=== PATIENT | male | born 1960 | race Caucasian/White ===

== ENCOUNTER 2016-09-22 09:21 | Day surgery (SDC) | payer MEDICAID ==
[2016-09-22] MEDS ORDERED: LIDOCAINE 1% 2 ML INJ ID PRN (09:30)
[2016-09-22] MEDS ORDERED: LR 1,000 ML IV ONE (09:30)
--- NOTE | 2016-09-22 09:41 | PDANEPAE ---
ANE History of Present Illness here for colonoscopy ANE Past Medical History - Cardiovascular History Hx Hypertension: No Hx Arrhythmias: No Hx Chest Pain: No Hx Coronary Artery / Peripheral Vascular Disease: No Hx CHF / Valvular Disease: No Hx Palpitations: No - Pulmonary History Hx COPD: No Hx Asthma/Reactive Airway Disease: No Hx Recent Upper Respiratory Infection: No Hx Oxygen in Use at Home: No Hx Sleep Apnea: No Sleep Apnea Screening Result - Last Documented: Negative - Neurologic History Hx Cerebrovascular Accident: No Hx Seizures: No Hx Dementia: No - Endocrine History Hx Diabetes: No - Renal History Hx Renal Disorders: No - Liver History Hx Hepatic Disorders: No - Neurological & Psychiatric Hx Hx Neurological and Psychiatric Disorders: No - Cancer History Hx Cancer: No - Congenital Disorder History Hx Congenital Disorders: No - GI History Hx Gastrointestinal Disorders: No - Other Health History Other Health History: FLU TYPE SX FOR 7 WEEKS. DIZZINESS,HEAD PRESSURE. WITHOUT FEVER - Chronic Pain History Chronic Pain: No - Surgical History Prior Surgeries: wisdom teeth ANE Review of Systems Review of systems is: negative - Exercise capacity Exercise capacity: >=4 METS METS (RN): 4 METS ANE Patient History - Allergies Allergies/Adverse Reactions: No Known Allergies Allergy (Unverified 09/04/16 13:29) - Home Medications Home medications: home medication list seen and reviewed Home Medications: Vitamin D3 09/04/16 [Last Taken 09/15/16] - NPO status NPO Status: no food or drink >8 hours - Anes Hx Anes Hx: no prior problems - Smoking Hx Smoking Status: Current some day smoker - Family Anes Hx Family Hx Anesthesia Complications: none ANE Labs/Vital Signs - Vital Signs Height: 182.88 cm Weight: 75.296 kg ANE Physical Exam - Airway Neck exam: FROM Mallampati Score: Class 1 - Pulmonary Pulmonary: no respiratory distress - Cardiovascular Cardiovascular: regular rate and rhythym - ASA Status ASA Status: I ANE Anesthesia Plan Anesthesia Plan: GA with mask
[2016-09-22 09:46] VITALS: BP 132/89; PULSE 99; RESP 18; TEMP 97.7; O2SAT 97
[2016-09-22] MEDS ORDERED: NALOXONE HCL 0.4 MG/ML INJ IVP PRN (09:59)
[2016-09-22] MEDS ORDERED: ONDANSETRON 4 MG/2 ML VIAL IVP PRN (09:59)
[2016-09-22] MEDS ORDERED: fentaNYL 100 MCG/2 ML INJ IVP PRN (09:59)
[2016-09-22] MEDS ORDERED: HYDROmorphONE/DILAUDID 1 MG/ML SYR IVP PRN (09:59)
[2016-09-22] MEDS ORDERED: PROPOFOL/EMULSION 500 MG/50 ML BOTTLE IV ONE (10:00)
--- NOTE | 2016-09-22 10:02 | PDGENHP ---
History & Physical Chief Complaint: Screening colonoscopy Relevant Physical Exam: GEN: NAD. Cardiac: RRR. Lungs: CTA B. Abd: Soft, nt, nd
--- NOTE | 2016-09-22 10:20 | CPEKG ---
Heart Rate: 109 RR Interval: 550 QRSD Interval: 80 QT Interval: 324 QTC Interval: 437 QRS [place]: 23 T Wave [place]: 237 EKG Severity - ABNORMAL ECG - EKG Impression: ATRIAL FLUTTER WITH VARIABLE BLOCK EKG Impression: CONSIDER ANTEROSEPTAL INFARCT EKG Impression: NONSPECIFIC T ABNORMALITIES, LATERAL LEADS Electronically Signed By: Juancarlos Watkins 22-Sep-2016 13:27:24
== END 2016-09-22 12:43 | disposition home or self-care (01) ==
LOC: FSGY 09:21
PROVIDERS: ATTEND Internal Medicine Gastroenterology
DX: Z12.11 Encounter for screening for malignant neoplasm of colon (principal); Z53.09 Procedure and treatment not carried out because of other contraindication
CPT/HCPCS: J2704

== ENCOUNTER → 2017-05-04 | Outpatient (CLI) | payer MEDICAID ==
[~2017-05-04] MED LIST: IOPAMIDOL (ISOVUE 370) 100 ML BTL IV ONE
== END ==
LOC: FIMAGING 09:39
PROVIDERS: ATTEND Internal Medicine Cardiovascular Disease
DX: Z01.818 Encounter for other preprocedural examination (principal); I48.91 Unspecified atrial fibrillation; I48.92 Unspecified atrial flutter
CPT/HCPCS: Q9967

== ENCOUNTER 2017-05-11 10:44 | Observation (INO) | payer MEDICAID ==
[2017-05-11] MEDS ORDERED: NS 1,000 ML IV ONE (10:53)
[2017-05-11 11:44] LABS: PLATELET COUNT 261 10^3/uL (150-400)
--- NOTE | 2017-05-11 12:05 | CPEKG ---
Heart Rate: 75 RR Interval: 800 QRSD Interval: 80 QT Interval: 404 QTC Interval: 452 QRS [place]: 51 T Wave [place]: 67 EKG Severity - ABNORMAL ECG - EKG Impression: ATRIAL FIBRILLATION, V-RATE 60-88 Electronically Signed By: Jean-Paul Moore 11-May-2017 12:41:33
[2017-05-11 12:14] LABS: INR 1.06 (0.83-1.16)
--- NOTE | 2017-05-11 12:27 | PDANEPAE ---
ANE History of Present Illness A fib/ a flutter ANE Past Medical History - Cardiovascular History Hx Hypertension: No Hx Arrhythmias: Yes Hx Chest Pain: No Hx Coronary Artery / Peripheral Vascular Disease: No Hx CHF / Valvular Disease: No Hx Palpitations: No - Pulmonary History Hx COPD: No Hx Asthma/Reactive Airway Disease: No Hx Recent Upper Respiratory Infection: No Hx Oxygen in Use at Home: No Hx Sleep Apnea: No - Neurologic History Hx Cerebrovascular Accident: No Hx Seizures: No Hx Dementia: No - Endocrine History Hx Diabetes: No Hypothyroid: No Hyperthyroid: No Obesity: no - Renal History Hx Renal Disorders: No - Liver History Hx Hepatic Disorders: No - Neurological & Psychiatric Hx Hx Neurological and Psychiatric Disorders: No - Cancer History Hx Cancer: No - Congenital Disorder History Hx Congenital Disorders: No - GI History Hx Gastrointestinal Disorders: No - Other Health History Other Health History: FLU TYPE SX FOR 7 WEEKS. DIZZINESS,HEAD PRESSURE. WITHOUT FEVER - Chronic Pain History Chronic Pain: No - Surgical History Prior Surgeries: wisdom teeth ANE Review of Systems Review of systems is: negative Review of Systems: - Exercise capacity Exercise capacity: >=4 METS ANE Patient History - Allergies Allergies/Adverse Reactions: No Known Allergies Allergy (Unverified 09/04/16 13:29) - Home Medications Home medications: home medication list seen and reviewed Home Medications: Dabigatran Etexilate Mesyl [Pradaxa 150 MG (*)] 150 mg PO BID 05/04/17 [Last Taken 05/09/17 00:00] Diltiazem HCl [Cartia Xt] 120 mg PO HS 05/04/17 [Last Taken 05/10/17 15:00] Flecainide Acetate [Tambocor] 100 mg PO BID 05/04/17 [Last Taken 05/05/17 20:00] Omeprazole 20 mg pe PO DAILY 05/11/17 [Last Taken 05/10/17 08:00] - Anes Hx Anes Hx: no prior problems - Smoking Hx Smoking Status: Former smoker - Family Anes Hx Family Hx Anesthesia Complications: none ANE Labs/Vital Signs - Labs Result Diagrams: 05/11/17 11:30 05/11/17 11:30 - Vital Signs Height: 183 cm Weight: 77.1 kg ANE Physical Exam - Airway Neck exam: FROM Mallampati Score: Class 1 Mouth exam: normal dental/mouth exam - Pulmonary Pulmonary: no respiratory distress - Cardiovascular Cardiovascular: regular rate and rhythym - ASA Status ASA Status: II ANE Anesthesia Plan Anesthesia Plan: general endotracheal anesthesia
[2017-05-11] MEDS ORDERED: PROPOFOL 200 MG/20 ML VIAL ONE (12:29)
[2017-05-11] MEDS ORDERED: fentaNYL 100 MCG/2 ML INJ ONE (12:29)
[2017-05-11] MEDS ORDERED: DEXAMETHASONE 4 MG/ML VIAL ONE (12:30)
[2017-05-11] MEDS ORDERED: ROCURONIUM 50 MG/5 ML VIAL ONE (12:31)
--- NOTE | 2017-05-11 12:40 | PDGENHP ---
History & Physical Chief Complaint: symptomatic AFIB and AFL Relevant Physical Exam: s1s2 rrr cta ao3 Cardiorespiratory Assessment: Symptomatic AFIB and AFL. Failed medical Rx with flecainide. CB ablation for AFIB, RF ablation for AFL
[2017-05-11] MEDS ORDERED: BUPIVACAINE 0.5% 30 ML SDV ONE (13:04)
[2017-05-11] MEDS ORDERED: HEPARIN/DEXTROSE 25,000 UNIT/500 ML BAG ONE (13:04)
[2017-05-11] MEDS ORDERED: HEPARIN 10,000 UNIT/10 ML MDV (1,000 UNIT/ML) ONE (13:04)
[2017-05-11] MEDS ORDERED: LIDOCAINE 1% 300 MG/30 ML SDV ONE (13:04)
[2017-05-11] MEDS ORDERED: IOPAMIDOL (ISOVUE-300) 100 ML BTL ONE (13:05)
--- NOTE | 2017-05-11 14:25 | POSTANESTH ---
Post Anesthetic Evaluation Cardiovascular Status: Normal, Stable Respiratory Status: Normal, Stable Level of Consciousness/Mental Status: Can Participate in Eval Pain Control: Adequate, Prn Tx Ordered Nausea/Vomiting Control: Adequate, Prn Tx Ordered Complications Possibly Related to Anesthesia: None Noted
[2017-05-11] MEDS ORDERED: PROTAMINE SULFATE 50 MG/5 ML VIAL IVP ONE (15:51)
[2017-05-11] MEDS ORDERED: ALBUTEROL 3 ML DEYVIAL IH PRN (16:00)
[2017-05-11] MEDS ORDERED: NALOXONE HCL 0.4 MG/ML INJ IVP PRN (16:00)
[2017-05-11] MEDS ORDERED: fentaNYL 100 MCG/2 ML INJ IVP PRN (16:00)
[2017-05-11] MEDS ORDERED: HYDROmorphONE/DILAUDID 2 MG/ML INJ IVP PRN (16:00)
[2017-05-11] MEDS ORDERED: ACETAMINOPHEN 500 MG TAB PO PRN (16:00)
[2017-05-11] MEDS ORDERED: NS 500 ML IV PRN (16:00)
[2017-05-11] MEDS ORDERED: HYDROCODONE/APAP 5/325 TAB PO PRN (16:00)
[2017-05-11] MEDS ORDERED: PROMETHAZINE HCL 25 MG/ML INJ IVP PRN (16:00)
[2017-05-11] MEDS ORDERED: ONDANSETRON 4 MG/2 ML VIAL IVP PRN (16:00)
[2017-05-11] MEDS ORDERED: OXYCODONE/APAP 5/325 TAB PO PRN (16:00)
[2017-05-11] MEDS ORDERED: LABETALOL HCL 5 MG/ML 20 ML MDV IVP PRN (16:00)
--- NOTE | 2017-05-11 16:13 | EPPROC ---
Electrophysiology Procedure Note: ELECTROPHYSIOLOGIC STUDY AND BALLOON-CATHETER MEDIATED CRYOABLATION FOR PAROXYSMAL ATRIAL FIBRILLATION AND RF ABLATION FOR ATRIAL FLUTTER Procedures performed: 70839-87 EP evaluation with RA/RV/LA pace/record, with arrhythmia induction 85801-78 EP evaluation with RA/RV pace record, insert/reposition catheter, with arrhythmia induction 54362 Atrial fibrillation ablation 2nd arrhythmia all Intracardiac echocardiogram Transseptal puncture Fluoroscopy INDICATION: Paroxysmal atrial fibrillation and atrial flutter PROCEDURE: The patient arrived in the Electrophysiology Laboratory in the fasting state. The right groin, left groin and right infraclavicular area were prepped and draped in the usual sterile fashion. Anesthesiologist administered general anesthesia Dr. Scott Hernandez. All catheters were placed percutaneously using the Seldinger technique and advanced into position under fluoroscopic guidance. One #7 [place] deflectable octapolar electrode catheter was placed in the His-bundle position via the left femoral vein (2mm spacing, IVC electrode for unipolar recordings). This catheter was placed in the coronary sinus after transseptal puncture and later placed in the SVC-R subclavian vein junction to pace the right phrenic nerve during right pulmonary vein ablation. One #8 [place] AcuNaV ultrasound catheter was placed in the left femoral vein and advanced into the right atrium. One #4 [place] sheath was inserted into the left femoral artery via percutaneous technique and used for continuous arterial blood pressure monitoring and intermittent ACT determination. Programmed stimulation was performed from the right atrium, left atrium (CS) and right ventricle. There was no evidence of AV accessory pathway. Intracardiac echo evaluation of the left atrium and pulmonary veins was performed. Baseline ACT was drawn and heparin bolus was administered and heparin drip was started prior to transseptal puncture. ACT was checked every 15 minutes and maintained in the range of 350-400 seconds. One 14Fr short sheath was placed in the right femoral vein. One 8Fr SL1 sheath was advanced into the right atrium via the 14Fr short sheath. Transseptal puncture was performed under intracardiac ultrasound, fluoroscopic and hemodynamic guidance placing the sheath into the left atrium. Central RF needle ( C0 curve) was used. The mean left atrial pressure was 6 mmHg. Pulmonary vein angiogram was done using SL1 sheath. CT angiography of pulmonary veins was done previously. There were distinct LSPV, LIPV, RSPV and RIPV. The SL1 sheath was exchanged for a Medtronic Flexcath sheath using an Amplatz stiff guide wire. A 28 mm Cryoballoon catheter with a 20 mm Achieve catheter was placed via the sheath into the left atrium. Intracardiac ultrasound and PV angiograms were used to assist in placing the mapping catheter at the antrum of the pulmonary veins. All pulmonary veins were isolated successfully using cryoballoon ablation using freeze/thaw/freeze cycles at 2-3-minute intervals, with good [id number] of isolation. Coumadin ridge/Ligament of Eric region was ablated. Pre and post pulmonary vein recordings were measured on the spiral Achieve catheter to ensure complete pulmonary vein isolation. During the right-sided ablation, phrenic nerve pacing was performed to assess the phrenic nerve strength ( manually and with ICE visualization of liver movement during phrenic capture) and the phrenic nerve was intact throughout the right-sided ablation and at the end of the procedure. An esophageal temperature probe (12 electrode, Circa) was placed by the anesthesiologist at the beginning of the procedure. Esophageal temperature was monitored continuously and cryoablation was interrupted if esophageal temperature was <15 C. Cryoapplications 9 total cryoablation time 1247s. Sheath was withdrawn to the right atrium. Medtronic FlexCath sheath was changed to a short sheath and Biosense Singer Mobi sheath was advanced through this into the right atrium . Halo catheter was placed along the tricuspid annulus. Using 8 mm RF catheter, lesions were placed across the cava tricuspid isthmus in the usual location. Bidirectional conduction block was achieved. ICE imaging post ablation was consistent with pre ablation imaging with no changes noted, moreover there was no left atrial/left ventricular thrombus and no pericardial effusion. The catheters were withdrawn. Protamine was given. Venous vascular access sheaths were removed in the EP lab after placing subcutaneous pursestring suture. Arterial sheath was left in place. The patient was recovered from anesthesia. There were no complications. The patient was arousable and moving all four extremities at the end of the procedure. CONCLUSIONS: 1. Paroxysmal atrial fibrillation. 2. Successful pulmonary vein isolation procedure (left and right pulmonary vein antrum) using cryoballoon ablation. 3. Atrial flutter. Successful ablation of cavo- tricuspid isthmus achieving bidirectional conduction block. 4. No apparent complications. Patient Problems: Problems Problem Status Onset Atrial fibrillation and flutter Acute
--- NOTE | 2017-05-11 16:45 | CPEKG ---
Heart Rate: 81 RR Interval: 741 P-R Interval: 180 QRSD Interval: 82 QT Interval: 376 QTC Interval: 437 P [place]: 79 QRS [place]: 53 T Wave [place]: 36 EKG Severity - ABNORMAL ECG - EKG Impression: SINUS RHYTHM EKG Impression: BORDERLINE R WAVE PROGRESSION, ANTERIOR LEADS EKG Impression: ST ELEVATION - CONSIDER PERICARDITIS Electronically Signed By: Ed Linder 11-May-2017 17:39:37
[2017-05-12] MEDS: DABIGATRAN ETEXILATE MESYL 150 MG CAP PO SCH ×2 (00:11→07:28)
[2017-05-12 04:57] LABS: PLATELET COUNT 231 10^3/uL (150-400)
[2017-05-12 05:07] LABS: INR 1.27 (0.83-1.16); PROTIME(PATIENT) 16.1 SEC (12.0-15.0)
[2017-05-12 05:10] LABS: CREATINE KINASE 597 IU/L (0-224)
--- NOTE | 2017-05-12 06:24 | CPEKG ---
Heart Rate: 72 RR Interval: 833 P-R Interval: 192 QRSD Interval: 82 QT Interval: 380 QTC Interval: 416 P [place]: 67 QRS [place]: 24 T Wave [place]: 35 EKG Severity - NORMAL ECG - EKG Impression: SINUS RHYTHM Electronically Signed By: Jean-Paul Moore 12-May-2017 06:38:40
[2017-05-12 06:27] VITALS: TEMP 98
[2017-05-12] MEDS ORDERED: OMEPRAZOLE 20 MG PO SCH (09:00)
[2017-05-12] MEDS ORDERED: PANTOPRAZOLE SODIUM 40 MG TAB PO SCH (09:00)
[2017-05-12 09:48] VITALS: BP 108/58; PULSE 81; RESP 12; O2SAT 94
--- NOTE | 2017-05-12 10:17 | ECHO ---
[email or web address] [address] Main: [phone] Fax: [email or web address] Echocardiogram Name: MAYDA MONTEIRO MR#: [id number] Study Date: 05/12/2017 Study Time: 09:08 AM Date of : 1960 Age: 56 year(s) Height: 182.9 cm (72 in.) Weight: 76.66 kg (169 lb.) BSA: 1.98 m2 Gender: Male Examination: Echo Indication: F/U Post EP Study Image Quality: Contrast: Requested by: Jean-Paul Moore BP: 112 mmHg/66 mmHg Heart Rate: Rhythm: Indication: F/U Post EP Study Procedure Staff Kick Plate Installer: Olga Naylor RDCS Reading Physician: Jean-Paul Moore MD Requesting Provider: Conclusions: The ejection fraction is visually estimated to be 65 %. Mild mitral valve regurgitation is present. No pericardial effusion. Measurements: Chambers Valvular Assessment AV/MV Valvular Assessment TV/PV Normal Normal Normal Name Value Range Name Value Range Name Value Range Ao Franci (2D): 2.8 cm (1.4 cm-2.6 AV Vmax: 1.54 m/s (1 m/s-1.7 PV Vmax: 0.83 m/s (0.6 m/s-0.9 cm) m/s) m/s) IVSd (2D): 0.7 cm (0.6 cm-1.1 AV maxP mmHg ( - ) PV PGmax: 3 mmHg ( - ) cm) AV meanP mmHg ( - ) LVDd (2D): 4.6 cm (4.2 cm-5.9 LVOT Vmax: 1.20 m/s (0.7 m/s-1.1 cm) m/s) LVDs (2D): 3.0 cm (2.1 cm-4 JOSE (Vmax): 2.2 cm2 ( - ) cm) JOSE (VTI): 2.1 cm ( - ) LVPWd (2D): 0.9 cm (0.6 cm-1 MV E Vmax: 0.76 m/s ( - ) cm) MV A Vmax: 0.54 m/s ( - ) LVOTd 1.9 cm 1.9 cm mm MV E/A: 1.41 ( - ) LVEF (BP): 66 % (>=55 %) MV PHT: 0.077 s ( - ) Visual EF: 65 % MVA (PHT): 2.9 s ( - ) RVDd(2D): 2.4 cm (1.9 cm-3.8 cmmm) Continued Measurements: Chambers Valvular Assessment AV/MV Valvular Assessment TV/PV Name Value Name Value Name Value LADs: 3.4 cm MV DecTime: 261 m/s CVP (est.): 5 mmHg LADs Lon.0 cm MV E/E' Septal: 7.30 Patient: MAYDA MONTEIRO Study Date: 05/12/2017 Page 1 of 2 09:08 AM LA Area: 15.5 cm2 MV E/E' Lateral: 5.40 LA Volume: 48 ml LA Volume Index: 24.2 ml/m2 RA Area: 18.1 cm2 Additional Vessels Name Value Ao Ascendin.4 cm Findings: Left Ventricle: Normal size left ventricle. The ejection fraction is visually estimated to be 65 %. Right Ventricle: Normal size right ventricle. Normal RV function. Left Atrium: The left atrium is normal in size. Right Atrium: The right atrium is normal in size. Mitral Valve: The mitral valve is normal in appearance. Mild mitral valve regurgitation is present. No mitral stenosis is present. Aortic Valve: The aortic valve is normal in appearance. There is no aortic valve regurgitation. No aortic valve stenosis is present. Tricuspid Valve: The tricuspid valve appears normal. Trivial tricuspid valve regurgitation. Pulmonic Valve: The pulmonic valve is normal in appearance and function. IVC: The IVC is normal sized. Pericardium: No pericardial effusion. No pleural effusion. (No Signature Object) Patient: MAYDA MONTEIRO Study Date: 05/12/2017 Page 2 of 2 09:08 AM [id number]
--- NOTE | 2017-05-12 20:50 | GDS ---
[f rep st] DISCHARGE SUMMARY DISCHARGE DIAGNOSES: 1. Atrial flutter. 2. Atrial fibrillation. 3. Mild mitral regurgitation. PROCEDURES: 1. 05/11/2017, EP study with both successful pulmonary vein isolation of the left and right pulmonar y vein antrum using cryoballoon ablation and successful ablation of the cava tricuspid isthmus achiev ing bidirectional conduction block. 2. 05/12/2017, echocardiogram which shows ejection fraction of 65% with mild mitral valve regurgitat ion. BRIEF HISTORY: Please see dictated H and P by Dr. Moore for complete details. In brief, the patient i s a 56-year-old male, who recently has been having bouts of atrial fibrillation and flutter. The fir st diagnosis occurred in 2017 at a routine outpatient colonoscopy. He was referred to Dr. Moore and wa s found to be in both atrial flutter, as well as atrial fibrillation on a live cor device. Despite b eing on flecainide and diltiazem, he would have episodes of both arrhythmias. Options were reviewed and patient was set up for EP study with ablations performed on 05/11/2017. On day of discharge, pat ient denies any chest pain, dyspnea, pain in the groin, palpitations, PND, or orthopnea. PHYSICAL EXAM: VITAL SIGNS: On day of discharge, blood pressure 108/58, heart rate 81, respirations 12, O2 saturation 94% on room air. GENERAL: He is a very pleasant male in no apparent distress. H EENT: Head is normocephalic, atraumatic. Eyes PERRL. HEART: Regular rate and rhythm. LUNGS: Cl ear. ABDOMEN: Bilateral groin sites without bruit or any significant ecchymoses. LABORATORY DATA: CBC with WBC 11.27, hemoglobin 14.6, hematocrit 41.5, platelet count 231. BMP with sodium 140, potassium 4.5, chloride 108, CO2 21, BUN 16, creatinine 0.8, glucose 96. Troponin 12.6, consistent with extensive ablation. Serial EKGs personally reviewed show initial rhythm of atrial f ibrillation and flutter with subsequent EKG showing sinus rhythm. RESULTS PENDING: None. DIET: Per previous. ACTIVITY: Groin precautions were reviewed at length. DISCHARGE MEDICATIONS: Please see med reconciliation for complete details. He is to continue Pradax a and omeprazole. He may discontinue flecainide and diltiazem. FOLLOWUP INSTRUCTIONS: 1. Groin precautions. 2. Follow up with Dr. Moore as scheduled. /[id number]/MODL
== END 2017-05-12 12:58 | disposition home or self-care (01) ==
LOC: FCATH 10:44 → F2N 16:14 → OBSVTOIN 16:14 → INTOOBSV 16:14 → F2N 16:19
PROVIDERS: ADMIT Internal Medicine Cardiovascular Disease; ATTEND Internal Medicine Cardiovascular Disease
PROC: 02583ZZ Destruction of Conduction Mechanism, Percutaneous Approach (ICD-10-PCS; principal; 2017-05-11)
PROC: 02K83ZZ Map Conduction Mechanism, Percutaneous Approach (ICD-10-PCS; principal; 2017-05-11)
PROC: B244ZZ3 Ultrasonography of Right Heart, Intravascular (ICD-10-PCS; principal; 2017-05-11)
PROC: 4A023FZ Measurement of Cardiac Rhythm, Percutaneous Approach (ICD-10-PCS; principal; 2017-05-11)
DX: I48.0 Paroxysmal atrial fibrillation (principal); I48.92 Unspecified atrial flutter; I34.0 Nonrheumatic mitral (valve) insufficiency; Z87.891 Personal history of nicotine dependence
CPT/HCPCS: 93005; 93306; 93613; 93655; 93656; 93662; C1893; G0378; C1730; C1731; C1732; C1733; C1766; J1100; J1644; J2704; J2720; J3010; Q9967